=== PATIENT | female | born 1995 | race Caucasian/White ===

== ENCOUNTER 2021-01-11 23:56 | Inpatient (IN) | payer OTHER ==
[2021-01-12] MEDS ORDERED: hydrALAZINE 20 MG/ML VIAL SLOW IVP PRN (00:02)
[2021-01-12] MEDS ORDERED: Lidocaine 1% (PF) 30 ML VIAL SC PRN (04:41)
[2021-01-12] MEDS ORDERED: NS / Oxytocin 40 units/1000ml 1,000 ML IV PRN (04:41)
[2021-01-12] MEDS ORDERED: Ondansetron PF 4 MG/2 ML Vial IVP PRN ×2 (04:41→11:53)
[2021-01-12] MEDS ORDERED: Methylergonovine 0.2 MG/ML VIAL IM PRN (04:41)
[2021-01-12] MEDS ORDERED: Carboprost 250 MCG/ML AMP IM PRN (04:41)
[2021-01-12] MEDS ORDERED: Misoprostol 200 MCG TAB PR PRN (04:41)
[2021-01-12] MEDS ORDERED: Ibuprofen 800 MG TAB PO PRN (04:41)
[2021-01-12] MEDS ORDERED: Promethazine HCl 25 MG/ML VIAL IM PRN ×2 (04:41→11:53)
[2021-01-12] MEDS ORDERED: Vancomycin 1 GM in Premix Bag 1 BAG IVPB SCH (04:45)
[2021-01-12] MEDS ORDERED: VANCOMYCIN IVPB SCH (04:49)
[2021-01-12] MEDS ORDERED: Vancomycin 2 GM in Premix Bag 1 BAG IVPB SCH (04:50)
[2021-01-12 05:50] LABS: Hemoglobin 10.6 g/dL (12.0-15.5); Mean Corpuscular HGB CONC 33.5 g/dL (32.0-36.0); Mean Corpuscular Hemoglobin 30.3 pg (27.0-33.0); Mean Corpuscular Volume 90.3 fl (81.6-98.3); Mean Platelet Volume 10.7 fl (7.4-10.4); Platelet Count 194 10x3/uL (150-450); RBC Distribution Width 13.1 % (11.5-14.5); White Blood Cell (WBC) Count 10.1 10x3/uL (3.5-10.5)
[2021-01-12 05:51] VITALS: BMI 37.2
[2021-01-12 06:17] LABS: Hep B Surf Ag Non-Reactive S/CO (NonReactive)
[2021-01-12 06:18] LABS: Syphilis Antibody Nonreactive (Nonreactive); Syphilis Antibody Index 0.05 S/CO (<1.00 Non-Reactive)
[2021-01-12 06:27] LABS: HBSAg Index 0.17 S/CO (0-0.99)
[2021-01-12] MEDS ORDERED: NS w/ Oxytocin 30 units 500 ML ONE ×2 (08:29→20:41)
[2021-01-12] MEDS ORDERED: diphenhydrAMINE 50 MG in Sodium Chloride 0.9% 50 ML IVPB PRN (11:07)
[2021-01-12] MEDS ORDERED: CEFAZOLIN 2 GM in Premix Bag 1 BAG IVPB SCH (11:30)
[2021-01-12] MEDS ORDERED: Lactated Ringer's 500 ML IV PRN (11:53)
[2021-01-12] MEDS ORDERED: ePHEDrine 50 MG/ML VIAL SLOW IVP PRN (11:53)
[2021-01-12] MEDS ORDERED: diphenhydrAMINE 50 MG/ML VIAL IVP PRN (11:53)
[2021-01-12] MEDS ORDERED: Naloxone HCl 0.4 mg/ml Vial IVP PRN ×2 (11:53)
[2021-01-12] MEDS ORDERED: Acetaminophen 325 MG TAB PO PRN (11:53)
[2021-01-12] MEDS ORDERED: Communication Order-Pharmacy FS SCH (12:00)
[2021-01-12] MEDS ORDERED: Fentanyl 4 mcg/Bupivacaine 0.1% Cassette 100 ML EPIDURAL SCH (12:00)
[2021-01-12] MEDS ORDERED: Fentanyl 4 mcg/Bup 0.1% Cadd 100 ML ONE (12:42)
[2021-01-12 14:27] LABS: SARS-CoV-2 PCR by NAA Not Detected (NotDetected)
[2021-01-12] MEDS ORDERED: Misoprostol 200 MCG TAB ONE (20:22)
[2021-01-13] MEDS ORDERED: NS w/ Oxytocin 30 units 500 ML ONE (00:31)
[2021-01-13] MEDS: CEFAZOLIN 1 GM in Sodium Chloride 0.9% 100 ML IVPB SCH (04:09)
[2021-01-13] MEDS ORDERED: hydrALAZINE 20 MG/ML VIAL SLOW IVP PRN (04:10)
[2021-01-13] MEDS ORDERED: Bisacodyl 10 MG SUPP PR PRN (04:10)
[2021-01-13] MEDS ORDERED: Lanolin Ointment 7 GM TUBE TOP PRN (04:10)
[2021-01-13] MEDS ORDERED: Misoprostol 200 MCG TAB VAG PRN (04:10)
[2021-01-13] MEDS ORDERED: Milk Of Magnesia 30 ML UDCUP PO PRN (04:10)
[2021-01-13] MEDS ORDERED: diphenhydrAMINE 25 MG CAP PO PRN (04:10)
[2021-01-13] MEDS ORDERED: Benzocaine-Menthol 82.5 ML CAN TOP PRN (04:10)
[2021-01-13] MEDS: Lactated Ringer's 1,000 ML IV SCH (04:10)
[2021-01-13] MEDS ORDERED: Ondansetron PF 4 MG/2 ML Vial IVP PRN (04:10)
[2021-01-13] MEDS ORDERED: Preparation H Ointment 28 GM TUBE PR PRN (04:10)
[2021-01-13] MEDS ORDERED: NS w/ Oxytocin 30 units 500 ML IV SCH (04:45)
[2021-01-13 08:22] LABS: #Eosinphils 0.1 10x3/uL (0.0-0.5); #Monocytes 0.6 10x3/uL (0.0-1.1); #Neutrophils 10.7 10x3/uL (1.5-8.4); %Basophils 0.1 % (0.0-2.0); %Eosinophils 0.6 % (0.0-6.0); %Monocytes 4.9 % (0.0-10.0); %Neutrophils 84.9 % (40.0-75.0); Hemoglobin 10.5 g/dL (12.0-15.5); Mean Corpuscular HGB CONC 33.2 g/dL (32.0-36.0); Mean Corpuscular Hemoglobin 30.1 pg (27.0-33.0); Mean Corpuscular Volume 90.5 fl (81.6-98.3); Mean Platelet Volume 10.9 fl (7.4-10.4); Platelet Count 196 10x3/uL (150-450); RBC Distribution Width 13.2 % (11.5-14.5); Red Blood Cell (RBC) Count 3.49 10x6/uL (3.90-5.03); White Blood Cell (WBC) Count 12.6 10x3/uL (3.5-10.5)
[2021-01-13] MEDS: Ibuprofen 800 MG TAB PO SCH ×3 (11:26→21:49)
[2021-01-13] MEDS: Docusate Calcium (SURFAK) 240 MG CAP PO SCH (11:26)
[2021-01-13] MEDS: Ferrous Sulfate 325 MG TAB PO SCH ×2 (11:27→19:20)
[2021-01-13] MEDS: Prenatal Vitamin 1 TAB PO SCH (13:24)
[2021-01-14 04:44] LABS: Hemoglobin 8.8 g/dL (12.0-15.5)
[2021-01-14] MEDS: Ibuprofen 800 MG TAB PO SCH ×2 (06:44→13:31)
[2021-01-14] MEDS: Docusate Calcium (SURFAK) 240 MG CAP PO SCH ×2 (06:44→09:48)
[2021-01-14] MEDS: Prenatal Vitamin 1 TAB PO SCH (09:48)
[2021-01-14] MEDS: Ferrous Sulfate 325 MG TAB PO SCH (09:48)
[2021-01-14 11:57] VITALS: BP 105/61; TEMP 98.1
== END 2021-01-14 16:10 | disposition home or self-care (01) | DRG 807 ==
LOC: CSHLD/OP 23:56 → CSHLD 01-12 05:29 → CSHPP 01-13 10:13
PROVIDERS: ADMIT Emergency Medicine; ATTEND Emergency Medicine
PROC: 10E0XZZ Delivery of Products of Conception, External Approach (ICD-10-PCS; principal; 2021-01-12)
PROC: 0KQM0ZZ Repair Perineum Muscle, Open Approach (ICD-10-PCS; 2021-01-12)
PROC: 10907ZC Drainage of Amniotic Fluid, Therapeutic from Products of Conception, Via Natural or Artificial Opening (ICD-10-PCS; 2021-01-12)
PROC: 3E033VJ Introduction of Other Hormone into Peripheral Vein, Percutaneous Approach (ICD-10-PCS; 2021-01-12)
DX: O99.824 Streptococcus B carrier state complicating childbirth (principal); Z37.0 Single live birth; Z20.822 Contact with and (suspected) exposure to COVID-19; O99.02 Anemia complicating childbirth; D64.9 Anemia, unspecified; O70.1 Second degree perineal laceration during delivery; O75.3 Other infection during labor; N76.0 Acute vaginitis; Z3A.39 39 weeks gestation of pregnancy; Z88.0 Allergy status to penicillin
CPT/HCPCS: 36415; 51702; 85014; 85018; 85025; 85027; 86780; 86850; 86900; 86901; 87340; 87635; 99285; J0690; J2590; J3370; J7030; U0003; U0005

== ENCOUNTER 2022-03-27 19:41 | Emergency (ER) | payer OTHER ==
[2022-03-27 20:39] LABS: #Eosinphils 0.1 10x3/uL (0.0-0.5); #Monocytes 0.5 10x3/uL (0.0-1.1); #Neutrophils 5.9 10x3/uL (1.5-8.4); %Basophils 0.4 % (0.0-2.0); %Eosinophils 1.1 % (0.0-6.0); %Lymphocytes 19.7 % (18.0-47.0); %Monocytes 5.7 % (0.0-10.0); %Neutrophils 72.9 % (40.0-75.0); Hemoglobin 11.1 g/dL (12.0-15.5); Mean Corpuscular HGB CONC 32.7 g/dL (32.0-36.0); Mean Corpuscular Hemoglobin 25.9 pg (27.0-33.0); Mean Corpuscular Volume 79.2 fl (81.6-98.3); Mean Platelet Volume 10.1 fl (7.4-10.4); Platelet Count 273 10x3/uL (150-450); RBC Distribution Width 16.4 % (11.5-14.5); Red Blood Cell (RBC) Count 4.28 10x6/uL (3.90-5.03); White Blood Cell (WBC) Count 8.1 10x3/uL (3.5-10.5)
[2022-03-27 20:42] LABS: Bilirubin Neg (Negative); Blood, Urine Negative (Negative); Clarity Clear (Clear); Glucose, Urine (Dipstick) Normal (Negative); Ketone, Urine Negative (Negative); Leukocyte Negative (Negative); Nitrite Negative (Negative); Protein, Urine (Dipstick) Negative (Neg-Trace); Specific Gravity, Urine 1.025 (1.002-1.036); Urobilinogen Normal mg/dL (Less than 2)
[2022-03-27 20:45] LABS: BHCG - Serum Negative (NEGATIVE); Pregs Control Background? CLEAR/WHITE (CLR/WHITE); Pregs Control Bar Appear? YES (CONTROL BAR)
[2022-03-27 20:54] LABS: ALT (SGPT) 11 U/L (8-55); AST (SGOT) 11 U/L (5-34); Albumin 4.3 g/dL (3.5-5.0); Alkaline Phosphatase 45 U/L (40-110); Anion Gap 12 mmol/L (10-20); BUN (Urea Nitrogen) 16 mg/dL (7.0-18.7); Bilirubin, Total 0.2 mg/dL (0.2-1.2); CK (CPK) 30 U/L (29-168); Calc. Creatinine Clearance 0 mL/min (70-130); Calcium 9.4 mg/dL (7.8-10.44); Carbon Dioxide 23 mmol/L (22-29); Chloride 108 mmol/L (98-107); Globulin 2.8 g/dL (2.4-3.5); Glucose 97 mg/dL (70-105); Lipase 21 U/L (8-78); Potassium 4.3 mmol/L (3.5-5.1); Protein, Total 7.1 g/dL (6.0-8.3); Sodium 139 mmol/L (136-145)
== END 2022-03-27 21:49 | disposition home or self-care (01) ==
LOC: CSHERS 19:41
DX: R19.7 Diarrhea, unspecified (principal)
CPT/HCPCS: 80053; 81003; 82550; 83690; 84703; 85025; 96360

== ENCOUNTER 2022-12-27 18:40 | Emergency (ER) | payer OTHER, SELFPAY ==
[2022-12-27 19:39] LABS: Bilirubin Neg (Negative); Blood, Urine Negative (Negative); Clarity Clear (Clear); Glucose, Urine (Dipstick) Normal (Negative); Ketone, Urine Negative (Negative); Leukocyte Negative (Negative); Nitrite Negative (Negative); Protein, Urine (Dipstick) Negative (Neg-Trace); Specific Gravity, Urine 1.015 (1.005-1.030); Urobilinogen Normal mg/dL (Less than 2)
[2022-12-27 19:40] LABS: Pregu Control Background? CLEAR/WHITE (CLR/WHITE); Pregu Control Bar Appear? YES (CONTROL BAR); Specific Gravity 1.015 (1.002-1.036)
[2022-12-27 19:41] LABS: Pregnancy Test - Urine (BHCG) Negative (Negative)
[2022-12-27 19:58] LABS: Mononucleosis NEGATIVE (NEGATIVE)
[2022-12-27 19:59] LABS: MONO NEGATIVE CONTROL ZONE White (Negative) (White); MONO POSITIVE CONTROL Pink Line (Positive) (PINK/RED)
[2022-12-27] MEDS ORDERED: Hydrocodone-Acetamin 15 ML UDCUP ONE (20:02)
[2022-12-27 20:03] LABS: SARS-CoV-2 NAA Rapid Test Not Detected (NotDetected)
[2022-12-27] MEDS ORDERED: Dexamethasone 10 MG/ML VIAL ONE (20:24)
== END 2022-12-27 20:30 | disposition home or self-care (01) ==
LOC: CSHERS 18:40
DX: J02.9 Acute pharyngitis, unspecified (principal); F17.290 Nicotine dependence, other tobacco product, uncomplicated; Z20.822 Contact with and (suspected) exposure to COVID-19
CPT/HCPCS: 36415; 81003; 81025; 86308; 87081; 87430; 99283; J1100

== ENCOUNTER 2023-06-21 18:09 | Emergency (ER) | payer OTHER ==
[2023-06-21] MEDS ORDERED: Ibuprofen 200 MG TAB ONE (21:31)
== END 2023-06-21 21:37 | disposition home or self-care (01) ==
LOC: CSHERS 18:09
DX: K04.7 Periapical abscess without sinus (principal); F17.290 Nicotine dependence, other tobacco product, uncomplicated
CPT/HCPCS: 99282

== ENCOUNTER 2023-12-16 12:13 | Emergency (ER) | payer OTHER ==
[2023-12-16 12:56] LABS: Bilirubin Neg (Negative); Blood, Urine 50 (Negative); Clarity Clear (Clear); Glucose, Urine (Dipstick) Normal (Negative); Ketone, Urine Negative (Negative); Leukocyte Negative (Negative); Nitrite Negative (Negative); Protein, Urine (Dipstick) Negative (Neg-Trace); Urobilinogen Normal mg/dL (Less than 2)
[2023-12-16 13:14] LABS: CAUTI Indications for Culture Pregnancy; WBC/HPF 0-3 HPF (0-3)
[2023-12-16 13:16] LABS: Bacteria/HPF 1+ HPF (None Seen); Mucous/LPF 2+ LPF (<2+); Transitional Epithelial 0-3 HPF (None Seen)
[2023-12-16 13:17] LABS: Urine Culture Reflex Yes Yes
[2023-12-16 13:20] LABS: #Eosinphils 0.1 10x3/uL (0.0-0.5); #Monocytes 0.5 10x3/uL (0.0-1.1); #Neutrophils 4.2 10x3/uL (1.5-8.4); %Basophils 0.2 % (0.0-2.0); %Eosinophils 0.8 % (0.0-6.0); %Lymphocytes 24.7 % (18.0-47.0); %Monocytes 7.2 % (0.0-10.0); %Neutrophils 66.6 % (40.0-75.0); Hematocrit 29.2 % (34.9-44.5); Hemoglobin 9.8 g/dL (12.0-15.5); Mean Corpuscular HGB CONC 33.6 g/dL (32.0-36.0); Mean Corpuscular Hemoglobin 25.8 pg (27.0-33.0); Mean Corpuscular Volume 76.8 fl (81.6-98.3); Mean Platelet Volume 10.2 fl (7.4-10.4); Platelet Count 212 10x3/uL (150-450); RBC Distribution Width 15.9 % (11.5-14.5); White Blood Cell (WBC) Count 6.3 10x3/uL (3.5-10.5)
[2023-12-16 15:17] LABS: ALT (SGPT) 7 U/L (8-55); AST (SGOT) 11 U/L (5-34); Albumin 3.9 g/dL (3.5-5.0); Alkaline Phosphatase 33 U/L (40-110); Anion Gap 12 mmol/L (10-20); BUN (Urea Nitrogen) 7 mg/dL (7.0-18.7); Bilirubin, Total 0.2 mg/dL (0.2-1.2); Calc. Creatinine Clearance 0 mL/min (70-130); Calcium 8.8 mg/dL (7.8-10.44); Carbon Dioxide 20 mmol/L (22-29); Chloride 107 mmol/L (98-107); Estimated GFR 126; Globulin 2.7 g/dL (2.4-3.5); Glucose 80 mg/dL (70-105); Potassium 3.7 mmol/L (3.5-5.1); Protein, Total 6.6 g/dL (6.0-8.3); Sodium 135 mmol/L (136-145)
== END 2023-12-16 16:31 | disposition home or self-care (01) ==
LOC: CSHERS 12:13
DX: O20.9 Hemorrhage in early pregnancy, unspecified (principal); O99.011 Anemia complicating pregnancy, first trimester; O99.331 Smoking (tobacco) complicating pregnancy, first trimester; F17.290 Nicotine dependence, other tobacco product, uncomplicated; Z3A.10 10 weeks gestation of pregnancy
CPT/HCPCS: 36415; 76817; 80053; 81001; 84702; 85025; 86900; 86901; 87086; 90384; 96372